=== PATIENT | female | born 1930 ===

== ENCOUNTER 2018-10-22 15:19 | Emergency (ER) | payer OTHER ==
[~2018-10-22] VITALS: Ht 162.6 cm; Wt 63.0 kg
[~2018-10-22 15:19] MED LIST: CENTRUM CH1 TAB.CHEW PO; DICLOFENAC SODI50 MG PO; HYZAAR 100-121 UDTAB PO; OMEGA 3 FISH OI1 CAP PO
[2018-10-22] MEDS ORDERED: LEVOTHYROXINE50 MCG (15:37)
[2018-10-22] MEDS ORDERED: LIPITOR40 MG (15:38)
[2018-10-22] MEDS ORDERED: MILLIPRED5 MG (15:38)
[2018-10-22] MEDS ORDERED: GABAPENTIN400 MG (15:38)
[2018-10-22] MEDS ORDERED: AMLODIPINE BESYL5 MG (15:39)
[2018-10-22] MEDS ORDERED: ASA81 MG (15:39)
[2018-10-22] MEDS ORDERED: PANADOL EXTRA500 MG (15:39)
[2018-10-22] MEDS ORDERED: ACIDO FOLICO (15:42)
== END 2018-10-22 19:37 | disposition home or self-care (01) ==
LOC: ER 15:19
DX: J11.1 Influenza due to unidentified influenza virus with other respiratory manifestations (principal)